=== PATIENT | male | born 1980 | race Caucasian/White ===

== ENCOUNTER → 2020-11-08 | Outpatient (CLI) | payer BC ==
--- NOTE | 2020-11-08 10:22 | XR ---
EXAMINATION TYPE: XR KUB DATE OF EXAM: 11/08/2020 HISTORY: Pain Comparison: None.Single KUB is submitted for interpretation. Findings: Right renal calculi: No visible calculus seen. Bowel content limits evaluation. Right ureteral calculi: None Visualized. Left renal calculi: None Visualized. Left ureteral calculi: None Visualized. Pelvic calcifications: None Visualized. Bowel gas pattern is unremarkable. No free air. No mass effects. IMPRESSION: 1. No visible calculus seen. Bowel content limits evaluation.
== END | disposition home or self-care (01) ==
LOC: RADXRMAIN 09:38
PROVIDERS: ATTEND Urology
DX: N20.1 Calculus of ureter (principal)
CPT/HCPCS: 74018